=== PATIENT | male | born 1985 | race Caucasian/White ===

== ENCOUNTER 2017-09-16 13:37 | Emergency (ER) | payer OTHER ==
[~2017-09-16] VITALS: Ht 170.2 cm; Wt 59.0 kg
[2017-09-16] MEDS ORDERED: Lidocaine 1% 10mg/ml/Epi 0.005mg/ml 30ml vial INJ ONE (14:30)
[2017-09-16] MEDS ORDERED: Tetanus/Diptheria/Pertussis Vaccine 0.5ml Syr IM ONE (14:30)
[2017-09-16] MEDS ORDERED: Norco 5mg/325mg tab ORAL ONE (14:30)
[2017-09-16] MEDS ORDERED: IBUPROFEN600 MG ORAL (15:52)
[2017-09-16 15:55] VITALS: BP 126/70
--- NOTE | 2017-09-16 19:59 | Emergency Room Report ---
History of Present Illness General Chief Complaint: Laceration Source: Patient Present Illness HPI The patient is a 32-year-old male presenting for left foot pain after he dropped a glass object onto the foot. This occurred just prior to arrival. He noticed immediate bleeding and pain. Pain is now a 6/10 sharp sensation and does not radiate from the top of the left foot. Worse with touch and movement. Last tetanus shot unknown. He denies any other symptoms or injuries Allergies: Coded Allergies: No Known Allergies (Unverified , 09/16/17) Patient History Past Medical History: see triage record Pertinent Family History: none Reviewed Nursing Documentation: PMH: Agreed, PSxH: Agreed Nursing Documentation-PMH Past Medical History: No Stated History Review of Systems All Other Systems: negative except mentioned in HPI Physical Exam Vital Signs Date Time Temp Pulse Resp B/P (MAP) Pulse Ox O2 Delivery O2 Flow Rate FiO2 09/16/17 13:55 98.2 81 19 128/73 97 Room Air Sp02 EP Interpretation: reviewed, normal General Appearance: no apparent distress, alert, GCS 15, non-toxic Head: normocephalic, atraumatic Eyes: bilateral eye normal inspection, bilateral eye PERRL Musculoskeletal: back normal, gait/station normal, normal range of motion, no calf tenderness, tender - TTP over dorsum of foot Neurologic: alert, oriented x3, responsive, motor strength/tone normal, sensory intact, speech normal Psychiatric: judgement/insight normal, memory normal, mood/affect normal, no suicidal/homicidal ideation Skin: laceration - 4cm linear laceration to mid dorsum of foot Lymphatic: no adenopathy Procedures Laceration/Wound Repair Laceration/Wound Repair : Consent: Verbal Wound Location: lower extremity Wound's Depth, Shape: into muscle, linear Wound Length (cm): 4 Wound Explored: clean Irrigated w/ Saline (ccs): 100 Betadine Prep?: Yes Anesthesia: 1% Lidocaine, Lidocaine w/ Epi Volume Anesthetic (ccs): 5 Wound Debrided: minimal Wound Repaired With: sutures Suture Size/Type: 5:0, nylon Number of Sutures: 6 Layer Closure?: Yes Deep Layer Suture Size/Type: 5:0, gut Number Deep Layer Sutures: 2 Sterile Dressing Applied?: Yes Splint Applied?: No Sling Applied?: No Patient Tolerated: Well Complications: None Medical Decision Making PA Attestation Dr. Quigley is my supervising physician. Patient management was discussed with my supervising physician Diagnostic Impression: Primary Impression: Foot laceration Qualified Codes: S91.312A - Laceration without foreign body, left foot, initial encounter ER Course The patient is a 32-year-old male presenting for left foot pain after he dropped a glass object onto the foot. Ddx considered include but not limited to fracture, tendon/ligament injury, avulsion, nerve damage PE: NAD There is a 4 cm linear laceration to the left dorsum mid foot. There is some bleeding. Full active range of motion of the ankle and toes are intact DP pulse 2+ Xray of foot unremarkable The wound was irrigated with normal saline and cleaned with betadine. A 27g needle was used to administer 5mL of lidocaine w. epi for local anaesthesia. 6 sutures were placed with 6-0 Nylon. 2 dissolvable sutures are placed deep. The wound was well approximated and the patient tolerated the procedure well. The wound was then cleaned and dressing applied. ER precautions given Other X-Ray Diagnostic Results Other X-Ray Diagnostic Results : X-Ray ordered: L foot # of Views/Limited Vs Complete: 3 View Indication: Pain EP Interpretation: Yes PA Xray: Interpretation reviewed, by supervising MD, and agrees with findings. Interpretation: no dislocation, no soft tissue swelling, no fractures Impression: No acute disease Electronically Signed by: Jony Raygoza PA-C Last Vital Signs Date Time Temp Pulse Resp B/P (MAP) Pulse Ox O2 Delivery O2 Flow Rate FiO2 09/16/17 15:55 98.2 80 19 126/70 97 Room Air Status: improved Disposition: HOME, SELF-CARE Condition: Improved Scripts Ibuprofen* (MOTRIN*) 600 Mg Tablet 600 MG ORAL Q8H Y for For Pain, #30 TAB 0 Refills Prov: JONY RAYGOZA 09/16/17 Patient Instructions: Laceration Care, Adult Additional Instructions: I discussed my findings with the patient. All questions and concerns have been answered. Treatment and medication compliance have been addressed. I advised the patient that they need to follow up with PMD in 7 days for wound check and suture removal. If you are unable to see PMD, return to the ED in 7 days. Return to ED if pain remains or worsens, you notice discharge from the wound, the wound continues to bleed, the suture/s fall out, you notice a fever or chills, or for any reason. Patient is advised to keep the wound clean. Patient verbalized understanding of discharge instructions. JONY RAYGOZA Sep 16, 2017 19:59
--- NOTE | 2017-09-17 21:48 | Diagnostic Imaging Report ---
Indication: Pain Comparison: None Findings: 3 views of the left foot were obtained. No acute fractures, malalignment, erosions or periostitis are identified. Dorsal soft tissue lucency or defect noted near the ankle seen on the lateral view. Please correlate clinically.. Impression: No acute findings. Soft tissue lucency dorsum
== END 2017-09-16 15:56 | disposition home or self-care (01) ==
LOC: EMR 14:20
DX: S91.312A Laceration without foreign body, left foot, initial encounter (principal); Z23 Encounter for immunization; W25.XXXA Contact with sharp glass, initial encounter; Y93.9 Activity, unspecified; Y92.9 Unspecified place or not applicable
CPT/HCPCS: 90471; 90715; 99284